=== PATIENT | female | born 1940 | race Caucasian/White ===

== ENCOUNTER → 2018-08-01 | Outpatient (CLI) | payer MEDICARE ==
[2018-08-01 18:07] LABS: COLOR,URINE YELLOW
[2018-08-01 18:08] LABS: BILIRUBIN,URINE NEGATIVE (NEGATIVE); CLARITY,URINE SLT CLOUDY; GLUCOSE, URINE (UA) NEGATIVE (NEGATIVE); KETONES,URINE NEGATIVE (NEGATIVE); LEUKOCYTE ESTERASE ,URINE 2+ (NEGATIVE); NITRITE,URINE NEGATIVE (NEGATIVE); PROTEIN,URINE NEGATIVE (NEGATIVE); RBC,URINE 0-2 /HPF; UROBILINOGEN,URINE 0.2 MG/DL (NORMAL); WBC,URINE 50-100 /HPF
[2018-08-01 18:09] LABS: BACTERIA,URINE NEGATIVE /HPF
== END ==
LOC: LAB FS 17:50
DX: R30.0 Dysuria (principal); R32 Unspecified urinary incontinence
CPT/HCPCS: 81000; 87088

== ENCOUNTER 2021-05-12 22:36 | Emergency (ER) | payer MEDICARE ==
--- OUTSIDE RECORDS SUMMARY | 2021-05-12 22:40 | XMS REPORT | Clinical Summary ---
Author Author [facility] Organization [facility] Address Unknown Phone Unavailable Care Team Providers Care Interrelated Special Education Teacher Name Role Phone Dwain Sorto MD PCP Allergies Comments Active Allergy Reactions Severity Noted Date Adhesive Tape-Silicones Burning 02/22/2016 Amoxicillin Diarrhea 02/22/2016 Azithromycin Blisters 02/22/2016 Cefdinir Diarrhea 02/22/2016 Fentanyl Nausea And 02/22/2016 Vomiting Hydrocodone Nausea Only 02/22/2016 Oxycodone Nausea Only 02/22/2016 Tramadol Nausea Only 02/22/2016 Medications End Date Status Medication Sig Dispensed Refills Start Date Active melatonin 10 mg cap Take by mouth 0 nightly. Active Lactobacillus acidophilus Take by mouth 0 (PROBIOTIC) 10 billion daily. cell cap Active ALPRAZolam (XANAX) 0.5 MG Take 0.5 mg 0 tabletIndications: by mouth 2 anxiety (two) times a day. Take 1 1/2 tablets two times a day Active zolpidem (AMBIEN) 5 MG Take 5 mg by 0 tablet mouth nightly as needed for sleep. Active citalopram (CELEXA) 20 mg Take 20 mg by 0 tablet mouth daily. Active mirtazapine (REMERON) 15 Take 15 mg by 0 MG tablet mouth nightly. Active donepezil (ARICEPT) 10 MG Take 10 mg by 0 tablet mouth nightly. Active simvastatin (ZOCOR) 20 MG Take 20 mg by 0 tablet mouth nightly. Active lisinopril Take 20 mg by 0 (PRINIVIL,ZESTRIL) 20 MG mouth daily. tablet Active furosemide (LASIX) 20 MG Take 20 mg by 0 tablet mouth daily. Active nabumetone (RELAFEN) 500 Take 500 mg 0 MG tablet by mouth 2 (two) times a day. Active aspirin 81 MG EC tablet Take 81 mg by 0 mouth daily. Active therapeutic multivitamin Take 1 tablet 0 (THERAGRAN) tablet by mouth daily. Active docusate sodium (COLACE) Take 100 mg 0 100 MG capsule by mouth 2 (two) times a day as needed for constipation. Active methylcellulose Take by mouth 0 (CITRUCEL, SUCROSE,) oral daily. 2 powder tablespoons as needed Active CALCIUM CARBONATE/VITAMIN Take by 0 D3 (CALCIUM 600 + D,3, mouth. ORAL) Active biotin 10,000 mcg cap Take 10,000 0 mcg by mouth daily. Active gabapentin (NEURONTIN) Take 300 mg 0 300 MG capsule by mouth 3 (three) times a day. Active trifluoperazine Take 2 mg by 0 (STELAZINE) 2 MG tablet mouth daily. Take 1/2 to one tablet at bedtime Active QUEtiapine (SEROQUEL) 25 Take 25 mg by 0 MG tablet mouth 3 (three) times a day. Active potassium chloride Take 10 mEq 0 (KLOR-CON) 10 MEQ CR by mouth tablet daily. Active nystatin (MYCOSTATIN) Apply 30 g 0 01/29 powderIndications: topically 3 6 Candidiasis (three) times a day. Active Problems No known active problems Social History Date Tobacco Use Types Packs/Day Years Used Never Assessed Sex Assigned at Date Recorded Not on file Last Filed Vital Signs Reading Time Taken Comments Vital Sign 138/72 02/22/2016 3:29 PM CDT Blood Pressure 72 02/22/2016 3:29 PM CDT Pulse 36.8 C (98.3 F) 02/22/2016 3:29 PM CDT Temperature 12 02/22/2016 3:29 PM CDT Respiratory Rate 99% 02/22/2016 3:29 PM CDT Oxygen Saturation - - Inhaled Oxygen Concentration 70.3 kg (155 lb) 02/22/2016 3:29 PM CDT Weight 162.6 cm (5' 4") 02/22/2016 3:29 PM CDT Height 26.61 02/22/2016 3:29 PM CDT Body Mass Index Plan of Treatment Health Maintenance Due Date Last Done Comments Td/Tdap# 1940 Zoster Vaccine# (1 of 2) 1988 Fall Risk Assessment # 2003 Osteoporosis Screening 2003 Pneumococcal Vaccine: 65+ 2003 Years (1 of 1 - PPSV23) Influenza Vaccine (#1) 2021 Results Not on filefrom Last 3 Months Insurance Type Payer Benefit Subscriber ID Effective Phone Address Plan / Dates Group Medicare MEDICARE MEDICARE [id number] 2003-P [phone] [employer] PART A B resent ATTN CLAIMS DEPT [address] [place] [address] [facility] OUT OF [id number] 2015-P [address] resent [id number] [place] [address] Advance Directives For more information, please contact: [phone] 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
--- NOTE | 2021-05-12 22:53 | ED Fall/Injury ---
General Stated Complaint: FALL Source: patient Exam Limitations: no limitations History of Present Illness Date Seen by Provider: May 12, 2021 Time Seen by Provider: 22:37 Initial Comments Patient to ER by EMS from home with chief complaint that she was walking through her floor and there is been some buckling the last few days in the sandeep which she tripped over. She struck the front of her head and denies loss of consciousness. She has a small blunt laceration to her forehead. She is not having any nausea or vomiting. She denies pain anywhere else. No numbness or tingling. No loss of control of bowel or bladder. She denies being on blood thinners. It has been greater than 5 years since she had a tetanus vaccine Allergies and Home Medications Allergies Coded Allergies: No Known Drug Allergies (Unverified , 05/12/21) Patient Home Medication List Home Medication List Reviewed: Yes Review of Systems Review of Systems Constitutional: No chills, No diaphoresis Eyes: Denies Blindness, Denies Blurred Vision Ears, Nose, Mouth, Throat: denies ear pain, denies ear discharge Respiratory: No cough, No short of breath Cardiovascular: No chest pain, No palpitations Gastrointestinal: No abdominal pain, No nausea, No vomiting Genitourinary: No discharge, No dysuria All Other Systems Reviewed Negative Unless Noted: Yes Past Wwqgkrr-Cqeoms-Fjslmj Hx Patient Social History Tobacco Use?: No Use of E-Cig and/or Vaping dev: No Physical Exam Vital Signs Vital Signs - First Documented 05/12/21 22:40 Pulse 78 Resp 16 B/P (MAP) 122/84 (97) Pulse Ox 94 O2 Delivery Room Air Capillary Refill : Height, Weight, BMI Height: '" Weight: lbs. oz. kg; BMI Method: General Appearance: WD/WN, no apparent distress HEENT: PERRL/EOMI, normal ENT inspection, TMs normal (Negative for yen sign or raccoon eyes negative hemotympanum), pharynx normal, other (Anterior forehead has a blunt superficial laceration/abrasion skin tear about 2 x 2 cm.) Neck: non-tender, full range of motion, supple, normal inspection Cardiovascular: normal peripheral pulses, regular rate, rhythm Respiratory: lungs clear, normal breath sounds, no respiratory distress, no accessory muscle use Gastrointestinal: non tender, soft Extremities: normal range of motion, non-tender, normal inspection, normal capillary refill Neurologic/Psychiatric: keno dealer II-XII nml as tested, no motor/sensory deficits, alert, normal mood/affect, oriented x 3 Custer Coma Score Best Eye Response: (4) Open Spontaneously Best Verbal Response: (5) Oriented Best Motor Response: (6) Obeys Commands Custer Total: 15 Procedures/Interventions Wound Location: Face Other Wound Location Midline forehead Wound Length (cm): 2 Wound's Depth, Shape: superficial Wound Explored: no foreign body removed Betadine Prep?: Yes (Sterile saline and chlorhexidine) Other Closure Supply: Wound Adhesive Wound was thoroughly cleaned and dried and then applied 2 layers of cyanoacrylate. Wound was hemostatic. Progress/Results/Core Measures Results/Orders My Orders Orders - ELEAZAR FLORES Ct Head/Cervical Spine Wo (05/12/21 22:48) Dipht,Pertuss(Acell),Tet Adult (Boostrix (05/12/21 23:00) Medications Given in ED Vital Signs/I&O 05/12/21 05/12/21 22:40 23:49 Pulse 78 68 Resp 16 18 B/P (MAP) 122/84 (97) 132/81 Pulse Ox 94 97 O2 Delivery Room Air Room Air Progress Progress Note : Time: 23:[address] of the head and C-spine. Glued the forehead. Tetanus vaccine up-to-date. She declined anything for pain. Diagnostic Imaging Diagonstic Imaging: CT Plain Films/CT/US/NM/MRI: c-spine, head Comments No intracranial hemorrhage, mass-effect, midline shift or calvarial fracture. C-spine with some nonacute subluxation and significant degenerative disease but no acute malalignment or fracture. [facility] [place] NAME: TERESTIA BAKER [facility] REC#: [id number] PT STATUS: DEP ER : 1940 PHYSICIAN: ELEAZAR FLORES MD ADMIT DATE: 05/12/21/ER FS Signed Date of Exam:05/12/21 CT HEAD/CERVICAL SPINE WO PROCEDURE: CT head and CT cervical spine without contrast. TECHNIQUE: Multiple contiguous axial images were obtained through the brain and cervical spine without the use of intravenous contrast. Sagittal and coronal reformations through the cervical spine were then performed. Auto Exposure Controls were utilized during the CT exam to meet ALARA standards for radiation dose reduction. INDICATION: Fall hit head. Pain EXAMINATION: CT brain CT cervical spine 05/12/2021 FINDINGS: Brain: There is chronic ischemic disease in periventricular and deep white matter distribution with no acute hemorrhage or infarct. There is no mass, mass effect or midline shift. There is no hydrocephalus. The osseous structures appear intact. Paranasal sinuses and mastoid air cells unremarkable. There is a scalp hematoma along the right anterior frontal scalp. IMPRESSION: 1. Frontal hematoma within the subcutaneous tiny soft tissues with no acute intracranial process. CT cervical spine: There is grade 1-2 anterolisthesis at C6-C7. There is marked adjacent bilateral facet hypertrophy at both levels with fusion of the facets noted on the sagittal images. These findings appear chronic. There is multilevel bilateral facet hypertrophy throughout the entire cervical spine with multilevel spur disc complexes suspected. No acute fractures appreciated. The lung apices appear clear. The prevertebral soft tissues appear unremarkable. IMPRESSION: 1. Multilevel diffuse degenerative disease as described above with anterolisthesis at C6-C7 likely a chronic process slightly subluxed but fused bilateral facets at this level. Multilevel other degenerative changes with no acute fractures identified. Findings agree with the preliminary report. Dictated by: Dictated on workstation # [id number] Dict: 05/13/21719 Trans: 05/13/21902 [facility] [id number] Interpreted by: GILA DIAZ MD Electronically signed by: GIAL DIAZ MD 05/13/21902 Reviewed: Reviewed by Me Departure Impression Primary Impression: Fall Qualified Codes: W19.XXXA - Unspecified fall, initial encounter Additional Impressions: Laceration Hematoma Disposition: HOME, SELF-CARE Condition: Stable Departure-Patient Inst. Decision time for Depature: 23:40 Referrals: NO,LOCAL PHYSICIAN (PCP/Family) Primary Care Physician Patient Instructions: Laceration Repair With Glue (DC) Add. Discharge Instructions: Keep the wound area clean with regular soap and water. Shampoo or body washes okay. Do not use peroxide, alcohol or iodine as this will prolong wound healing. Drink plenty fluids and get plenty of rest the next couple days to prevent concussion. Tylenol and ibuprofen as necessary for headache. Ice pack 20 minutes on every 2 hours while awake for the first 2 days as needed for swelling or pain of the forehead. ELEAZAR FLORES May 12, 2021 22:53
[2021-05-12] MEDS ORDERED: TETANUS,DIPTH,PERTUSS P/F (BOOSTRIX) 0.5 ML VIAL IM ONE (23:00)
[2021-05-12 23:49] VITALS: BP 132/81
--- NOTE | 2021-05-13 07:31 | Diagnostic Imaging Report ---
PROCEDURE: CT head and CT cervical spine without contrast. TECHNIQUE: Multiple contiguous axial images were obtained through the brain and cervical spine without the use of intravenous contrast. Sagittal and coronal reformations through the cervical spine were then performed. Auto Exposure Controls were utilized during the CT exam to meet ALARA standards for radiation dose reduction. INDICATION: Fall hit head. Pain EXAMINATION: CT brain CT cervical spine 05/12/2021 FINDINGS: Brain: There is chronic ischemic disease in periventricular and deep white matter distribution with no acute hemorrhage or infarct. There is no mass, mass effect or midline shift. There is no hydrocephalus. The osseous structures appear intact. Paranasal sinuses and mastoid air cells unremarkable. There is a scalp hematoma along the right anterior frontal scalp. IMPRESSION: 1. Frontal hematoma within the subcutaneous tiny soft tissues with no acute intracranial process. CT cervical spine: There is grade 1-2 anterolisthesis at C6-C7. There is marked adjacent bilateral facet hypertrophy at both levels with fusion of the facets noted on the sagittal images. These findings appear chronic. There is multilevel bilateral facet hypertrophy throughout the entire cervical spine with multilevel spur disc complexes suspected. No acute fractures appreciated. The lung apices appear clear. The prevertebral soft tissues appear unremarkable. IMPRESSION: 1. Multilevel diffuse degenerative disease as described above with anterolisthesis at C6-C7 likely a chronic process slightly subluxed but fused bilateral facets at this level. Multilevel other degenerative changes with no acute fractures identified. Findings agree with the preliminary report. Dictated by: Dictated on workstation # [id number]
== END 2021-05-13 00:05 | disposition home or self-care (01) ==
LOC: EDUNIT# 22:36 → ER FS 22:37
DX: S01.81XA Laceration without foreign body of other part of head, initial encounter (principal); R40.2410 Glasgow coma scale score 13-15, unspecified time; Z23 Encounter for immunization; W01.198A Fall on same level from slipping, tripping and stumbling with subsequent striking against other object, initial encounter
CPT/HCPCS: 70450; 72125; 90715